=== PATIENT | female | born 1950 | race Caucasian/White ===

== ENCOUNTER 2020-06-22 10:00 | Inpatient (IN) | payer MEDICARE ==
[~2020-06-22] VITALS: Ht 172.7 cm; Wt 90.3 kg
[2020-06-23] MEDS ORDERED: METOCLOPRAMIDE H5 MG PO (08:32)
[2020-06-23] MEDS ORDERED: CRESTOR40 MG PO (08:33)
[2020-06-23] MEDS ORDERED: VENTOLIN HFA 66.7 GM INH (08:33)
[2020-06-23] MEDS ORDERED: PANTOPRAZOLE SO20 MG PO (08:33)
[2020-06-24 06:52] LABS: WHITE BLOOD COUNT 11.8 K/UL (4.5-11.0)
[2020-06-24 06:53] LABS: HEMOGLOBIN 12.9 gm/dl (12.3-15.3); RED BLOOD COUNT 4.3 M/UL (4.00-5.10)
[2020-06-24 07:01] LABS: BUN/CREATININE RATIO 20 (0-10)
--- NOTE | 2020-06-24 13:47 | NUR ---
PATIENT 1 SAT 87% ON ROOM AIR AT REST
--- NOTE | 2020-06-24 15:27 | NUR ---
PER RN, PATIENT SATS 86% ON ROOM AIR AT REST
[2020-06-25 07:47] LABS: HEMOGLOBIN 12.2 gm/dl (12.3-15.3); RED BLOOD COUNT 4.06 M/UL (4.00-5.10); WHITE BLOOD COUNT 9.9 K/UL (4.5-11.0)
[2020-06-25 08:01] LABS: BUN/CREATININE RATIO 14 (0-10)
[2020-06-25] MEDS ORDERED: CLOPIDOGREL75 MG PO (10:28)
[2020-06-25] MEDS ORDERED: ASPIRIN EC81 MG PO (10:28)
== END 2020-06-25 16:52 | disposition home or self-care (01) | DRG 39 ==
LOC: CCU 06-23 07:36 → ZOBSOF 06-23 07:36 → CCU 06-23 15:32 → PROG CARE 06-25 00:31
PROVIDERS: Internal Medicine; ADMIT Surgery
PROC: 03CN0ZZ Extirpation of Matter from Left External Carotid Artery, Open Approach (ICD-10-PCS; 2020-06-23)
PROC: 03CL0ZZ Extirpation of Matter from Left Internal Carotid Artery, Open Approach (ICD-10-PCS; 2020-06-23)
PROC: 03CJ0ZZ Extirpation of Matter from Left Common Carotid Artery, Open Approach (ICD-10-PCS; principal; 2020-06-23 09:00)
DX: I65.23 Occlusion and stenosis of bilateral carotid arteries (principal); E78.5 Hyperlipidemia, unspecified; J44.9 Chronic obstructive pulmonary disease, unspecified; Z20.822 Contact with and (suspected) exposure to COVID-19; F41.9 Anxiety disorder, unspecified; Z90.49 Acquired absence of other specified parts of digestive tract; F17.210 Nicotine dependence, cigarettes, uncomplicated; K21.9 Gastro-esophageal reflux disease without esophagitis
CPT/HCPCS: 36415; 71045; 80048; 85025; 85027; 87086; 94640; 94664; 94760; J0690; J1580; J1644; J2001; J2370; J2405; J2704; J2710; J2720; J3010; J7030; J7040; J7050; J7120

== ENCOUNTER → 2020-06-22 | Outpatient (CLI) | payer MEDICARE, SELFPAY ==
[~2020-06-22] MED LIST: ASPIRIN EC81 MG PO; CLOPIDOGREL75 MG PO; CRESTOR40 MG PO; CYMBALTA60 MG PO; FISH OIL 500 M1 EAC2 PO; FISH OIL EC 1,1 EACH PO; METOCLOPRAMIDE H5 MG PO; PANTOPRAZOLE SO20 MG PO; VENTOLIN HFA 66.7 GM INH
[2020-06-22 12:32] LABS: HEMOGLOBIN 14.9 gm/dl (12.3-15.3); RED BLOOD COUNT 4.79 M/UL (4.00-5.10); WHITE BLOOD COUNT 9.1 K/UL (4.5-11.0)
[2020-06-22 12:45] LABS: BUN/CREATININE RATIO 21 (0-10)
== END ==
LOC: CT 09:00 → ECHO 10:00 → OPSV2 11:30
PROVIDERS: Surgery
DX: Z01.818 Encounter for other preprocedural examination (principal); I65.23 Occlusion and stenosis of bilateral carotid arteries; I25.10 Atherosclerotic heart disease of native coronary artery without angina pectoris; N28.1 Cyst of kidney, acquired; I70.8 Atherosclerosis of other arteries; I65.02 Occlusion and stenosis of left vertebral artery; I49.1 Atrial premature depolarization
CPT/HCPCS: ECHO; 36415; 70498; 71046; 80053; 81001; 82565; 85025; 85610; 85730; 86850; 86900; 86901; 87086; 93005; 93306; J1644; Q9967

== ENCOUNTER → 2020-07-20 | Outpatient (CLI) | payer MEDICARE, OTHER ==
[2020-07-20 11:35] LABS: HEMOGLOBIN 13.7 gm/dl (12.3-15.3); RED BLOOD COUNT 4.41 M/UL (4.00-5.10); WHITE BLOOD COUNT 8.5 K/UL (4.5-11.0)
[2020-07-20 11:57] LABS: BUN/CREATININE RATIO 21 (0-10)
== END ==
LOC: OPSV2 10:42
PROVIDERS: Surgery
DX: Z53.8 Procedure and treatment not carried out for other reasons (principal)
CPT/HCPCS: 80053; 81001; 85025; 85610; 85730; 86850; 86900; 86901; 93005

== ENCOUNTER 2020-07-21 06:00 | Inpatient (IN) | payer MEDICARE ==
[~2020-07-21] VITALS: Ht 172.7 cm; Wt 81.6 kg
[~2020-07-21 06:00] MED LIST changes: -CYMBALTA60 MG PO; -FISH OIL 500 M1 EAC2 PO; -FISH OIL EC 1,1 EACH PO
[2020-07-21] MEDS ORDERED: CYMBALTA60 MG PO (06:33)
[2020-07-21] MEDS ORDERED: FISH OIL 500 M1 EAC2 PO (06:34)
[2020-07-21 19:04] LABS: HEMOGLOBIN 11.2 gm/dl (12.3-15.3); RED BLOOD COUNT 3.65 M/UL (4.00-5.10); WHITE BLOOD COUNT 8.2 K/UL (4.5-11.0)
[2020-07-21 19:21] LABS: BUN/CREATININE RATIO 14 (0-10)
[2020-07-22 05:39] LABS: HEMOGLOBIN 10.8 gm/dl (12.3-15.3); RED BLOOD COUNT 3.57 M/UL (4.00-5.10); WHITE BLOOD COUNT 7.4 K/UL (4.5-11.0)
[2020-07-22 06:00] LABS: BUN/CREATININE RATIO 16 (0-10)
[2020-07-23 04:34] LABS: HEMOGLOBIN 11.3 gm/dl (12.3-15.3); RED BLOOD COUNT 3.73 M/UL (4.00-5.10); WHITE BLOOD COUNT 8.3 K/UL (4.5-11.0)
[2020-07-23 04:52] LABS: BUN/CREATININE RATIO 15 (0-10)
[2020-07-24 09:15] LABS: HEMOGLOBIN 11.2 gm/dl (12.3-15.3)
--- NOTE | 2020-07-24 10:22 | NUR ---
REPORTED TO DR. DE DIOS PATIENT B/P AFTER BOLUS GIVEN. ACKNOWLEDGED
[2020-07-24] MEDS ORDERED: FISH OIL EC 1,1 EACH PO (14:27)
--- NOTE | 2020-07-24 16:40 | NUR ---
PM NURSE REPORTED PATIENT WOUND CARE WILL BE CHANGE WHEN FOLLOW UP VISIT WITH DR. CARTER.
== END 2020-07-24 17:38 | disposition home or self-care (01) | DRG 38 ==
LOC: OR 06:00 → CCU 10:15 → OR 11:30 → M/S 07-23 15:30 → MED SURG 4 07-23 19:48
PROVIDERS: Internal Medicine; ADMIT Surgery
PROC: 03CH0ZZ Extirpation of Matter from Right Common Carotid Artery, Open Approach (ICD-10-PCS; principal; 2020-07-22)
PROC: 03CM0ZZ Extirpation of Matter from Right External Carotid Artery, Open Approach (ICD-10-PCS; 2020-07-22)
PROC: 03CK0ZZ Extirpation of Matter from Right Internal Carotid Artery, Open Approach (ICD-10-PCS; 2020-07-22)
DX: I63.131 Cerebral infarction due to embolism of right carotid artery (principal); I97.191 Other postprocedural cardiac functional disturbances following other surgery; I95.9 Hypotension, unspecified; Z20.822 Contact with and (suspected) exposure to COVID-19; I73.9 Peripheral vascular disease, unspecified; J44.9 Chronic obstructive pulmonary disease, unspecified; E78.5 Hyperlipidemia, unspecified; R00.1 Bradycardia, unspecified; F41.9 Anxiety disorder, unspecified; F17.210 Nicotine dependence, cigarettes, uncomplicated; R94.31 Abnormal electrocardiogram [ECG] [EKG]; I48.91 Unspecified atrial fibrillation; D64.9 Anemia, unspecified; Z79.02 Long term (current) use of antithrombotics/antiplatelets; Z79.82 Long term (current) use of aspirin; Z82.49 Family history of ischemic heart disease and other diseases of the circulatory system; Z90.49 Acquired absence of other specified parts of digestive tract; Z79.899 Other long term (current) drug therapy; Z87.11 Personal history of peptic ulcer disease
CPT/HCPCS: 36415; 70450; 70551; 80048; 80053; 81001; 82550; 82553; 83605; 83735; 84439; 84443; 84484; 85014; 85018; 85025; 85610; 85730; 86850; 86900; 86901; 93005; 94664; 94760; J0690; J1580; J1644; J2001; J2370; J2405; J2704; J2710; J2720; J3010; J7030; J7040; J7050; J7120; U0003

== ENCOUNTER → 2020-08-31 | Outpatient (CLI) | payer MEDICARE ==
[~2020-08-31] MED LIST changes: +CYMBALTA60 MG PO; +FISH OIL 500 M1 EAC2 PO; +FISH OIL EC 1,1 EACH PO
== END ==
LOC: HEART 5 10:38
DX: I87.2 Venous insufficiency (chronic) (peripheral) (principal)
CPT/HCPCS: 93970